=== PATIENT | male | born 1985 | race Caucasian/White ===

== ENCOUNTER 2024-03-18 13:33 | Inpatient (IN) | payer OTHER ==
[2024-03-18 14:28] VITALS: BMI 22.2
[2024-03-18] MEDS ORDERED: MAG HYDROX/AL HYDROX/SIMETH 30 ML UNIT-DOSE CUP PO PRN (15:13)
[2024-03-18] MEDS ORDERED: BENZOCAINE/MENTHOL (CHLORASEPTIC ) LOZENGE MM PRN (15:13)
[2024-03-18] MEDS ORDERED: POLYETHYLENE GLYCOL (HEALTHYLAX) 3350 17 GM PACKET PO PRN (15:13)
[2024-03-18] MEDS ORDERED: DOCUSATE SODIUM 100 MG CAPSULE (FP) PO PRN (15:13)
[2024-03-18] MEDS ORDERED: NALOXONE HCL (KLOXXADO) 8 MG SPRAY NS PRN (15:13)
[2024-03-18] MEDS ORDERED: ACETAMINOPHEN 325 MG TABLET (FP) PO PRN (15:13)
[2024-03-18] MEDS ORDERED: hydrOXYzine PAMOATE 25 MG CAPSULE (FP) PO PRN (15:13)
[2024-03-18] MEDS ORDERED: IBUPROFEN 400 MG TABLET (FP) PO PRN (15:13)
[2024-03-18] MEDS ORDERED: BENZONATATE 200 MG CAPSULE PO PRN (15:13)
[2024-03-18] MEDS ORDERED: P-EPHED 60MG/TRIPROLIDI 2.5MG TABLET PO PRN (15:13)
[2024-03-18] MEDS ORDERED: NALOXONE HCL 0.4 MG/ML VIAL IM PRN (15:13)
[2024-03-18] MEDS ORDERED: MAGNESIUM HYDROX 2400MG/30ML ORAL SUSPENSION 30 ML CUP PO PRN (15:13)
[2024-03-18] MEDS ORDERED: guaiFENesin 600 MG TABLET.ER (FP) PO PRN (15:13)
[2024-03-18] MEDS ORDERED: LOPERAMIDE HCL 2 MG CAPSULE PO PRN (15:13)
[2024-03-18] MEDS: THIAMINE 100 MG TABLET PO SCH (21:44)
[2024-03-18] MEDS: MELATONIN 5 MG TABLETS PO SCH (21:44)
[2024-03-19] MEDS: PANTOPRAZOLE 20 MG TABLET PO SCH (07:39)
[2024-03-19] MEDS ORDERED: methaDONE HCL 10 MG TABLET PO SCH (09:00)
[2024-03-19] MEDS: methaDONE 80 MG, methaDONE 20 MG PO ONE (09:25)
[2024-03-19] MEDS: NICOTINE 14 MG/24 HOURS TOPICAL PATCH TD SCH (09:26)
[2024-03-19] MEDS: PRENATAL VITAMINS W/ FOLIC ACID TABLET (FP) PO SCH (09:26)
[2024-03-19] MEDS: GABAPENTIN 300 MG CAPSULE PO SCH (10:16)
[2024-03-19 11:37] LABS: HEMATOCRIT 44.1 % (35.4-49); HEMOGLOBIN 14.1 GM/dL (11.7-16.9); MCH 25.5 pg (25.7-33.7); MCHC 31.9 g/dl (32.0-35.9); MEAN PLT VOLUME 7.4 fl (7.5-11.1); PLATELET COUNT 267 10^3/uL (134-434); POTASSIUM 3.9 mmol/L (3.5-5.1); RBC 5.52 M/mm3 (4.00-5.60); WHITE BLOOD COUNT 7.3 K/mm3 (4.0-10.0)
[2024-03-19 11:41] LABS: ALBUMIN 3.3 g/dl (3.4-5.0); BLOOD UREA NITROGEN 17.6 mg/dL (7-18)
[2024-03-19 11:43] LABS: CREATININE 0.8 mg/dL (0.55-1.3)
[2024-03-19 11:45] LABS: BILIRUBIN,TOTAL 1.5 mg/dL (0.2-1); TOT PROT 7.4 g/dl (6.4-8.2)
[2024-03-19] MEDS: QUEtiapine FUMARATE 100 MG TABLET (FP) PO SCH (21:46)
[2024-03-19] MEDS: traZODone HCL 50 MG TABLET (FP) PO SCH (21:46)
[2024-03-19] MEDS ORDERED: QUEtiapine FUMARATE 100 MG TABLET (FP) PO SCH (22:00)
[2024-03-20] MEDS ORDERED: methaDONE HCL 10 MG TABLET PO SCH (06:00)
[2024-03-20] MEDS: PANTOPRAZOLE 20 MG TABLET PO SCH (06:27)
[2024-03-20] MEDS: methaDONE 80 MG, methaDONE 20 MG PO SCH ×2 (06:53→10:52)
[2024-03-20] MEDS: FLUoxetine HCL 20 MG CAPSULE PO SCH (10:52)
[2024-03-21 17:13] LABS: URINE APPEARANCE CLEAR; URINE BILIRUBIN NEGATIVE (NEGATIVE); URINE COLOR YELLOW; URINE GLUCOSE (UA) NEGATIVE (NEGATIVE); URINE KETONE NEGATIVE (NEGATIVE); URINE LEUK ESTERASE NEGATIVE (NEGATIVE); URINE NITRITE NEGATIVE (NEGATIVE); URINE PROTEIN NEGATIVE (NEGATIVE)
[2024-03-21] MEDS: IBUPROFEN 600 MG TABLET (FP) PO PRN (20:16)
[2024-03-22] MEDS: PANTOPRAZOLE 20 MG TABLET PO SCH (10:18)
[2024-03-22] MEDS: TRIAMCINOLONE ACET 0.025% CREAM 15 GM TUBE TP PRN (21:24)
[2024-03-26 07:51] VITALS: RESP 18
[2024-03-27 07:11] VITALS: BP 111/72; PULSE 75; TEMP 97.8
== END 2024-03-27 09:12 | disposition home or self-care (01) | DRG 772 ==
LOC: YASAS 13:33 → Y3NR 17:01 → Y3E 03-20 12:12
PROVIDERS: ADMIT Allergy & Immunology; ATTEND Psychiatry & Neurology Pain Medicine
PROC: HZ42ZZZ Group Counseling for Substance Abuse Treatment, Cognitive-Behavioral (ICD-10-PCS; principal; 2024-03-18)
DX: F11.20 Opioid dependence, uncomplicated (principal); F14.20 Cocaine dependence, uncomplicated; F12.20 Cannabis dependence, uncomplicated; F17.210 Nicotine dependence, cigarettes, uncomplicated; F32.9 Major depressive disorder, single episode, unspecified; F41.9 Anxiety disorder, unspecified; K21.9 Gastro-esophageal reflux disease without esophagitis; L30.9 Dermatitis, unspecified; Z86.79 Personal history of other diseases of the circulatory system; Z86.19 Personal history of other infectious and parasitic diseases
CPT/HCPCS: 36415; 80053; 80305; 80307; 81003; 85027; 86780; 87811

== ENCOUNTER 2025-02-24 11:40 | Inpatient (IN) | payer OTHER ==
[2025-02-24 12:21] VITALS: BMI 29.8
[2025-02-24] MEDS ORDERED: NALOXONE (NARCAN) HCL 4 MG/0.1 ML SPRAY NS PRN (12:50)
[2025-02-24] MEDS ORDERED: POLYETHYLENE GLYCOL (HEALTHYLAX) 3350 17 GM PACKET PO PRN (12:50)
[2025-02-24] MEDS ORDERED: hydrOXYzine PAMOATE 25 MG CAPSULE (FP) PO PRN (12:50)
[2025-02-24] MEDS ORDERED: IBUPROFEN 400 MG TABLET (FP) PO PRN (12:50)
[2025-02-24] MEDS ORDERED: guaiFENesin 600 MG TABLET.ER (FP) PO PRN (12:50)
[2025-02-24] MEDS ORDERED: BENZONATATE 200 MG CAPSULE PO PRN (12:50)
[2025-02-24] MEDS ORDERED: IBUPROFEN 600 MG TABLET (FP) PO PRN (12:50)
[2025-02-24] MEDS ORDERED: LOPERAMIDE HCL 2 MG CAPSULE PO PRN (12:50)
[2025-02-24] MEDS ORDERED: MAGNESIUM HYDROX 2400MG/30ML ORAL SUSPENSION 30 ML CUP PO PRN (12:50)
[2025-02-24] MEDS ORDERED: ACETAMINOPHEN 325 MG TABLET (FP) PO PRN (12:50)
[2025-02-24] MEDS ORDERED: BENZOCAINE/MENTHOL (CHLORASEPTIC ) LOZENGE MM PRN (12:50)
[2025-02-24] MEDS ORDERED: PRENATAL VITAMINS W/ FOLIC ACID TABLET (FP) PO ONE ×2 (13:19→13:26)
[2025-02-24] MEDS: PRENATAL VITAMINS W/ FOLIC ACID TABLET (FP) PO SCH (13:26)
[2025-02-24] MEDS ORDERED: methaDONE HCL 10 MG TABLET PO ONE (15:36)
[2025-02-24] MEDS: methaDONE 40 MG, methaDONE 10 MG PO ONE (16:33)
[2025-02-24] MEDS: TOPIRAMATE 25 MG TABLET PO SCH (17:37)
[2025-02-24] MEDS: GABAPENTIN 300 MG CAPSULE PO SCH (21:19)
[2025-02-24] MEDS: traZODone HCL 100 MG TABLET (FP) PO SCH (21:19)
[2025-02-24] MEDS: QUEtiapine FUMARATE 100 MG TABLET (FP) PO SCH (21:19)
[2025-02-24] MEDS: THIAMINE 100 MG TABLET PO SCH (21:19)
[2025-02-24] MEDS: MELATONIN 5 MG TABLETS PO SCH (21:20)
[2025-02-25] MEDS: NICOTINE 21 MG/24 HOURS TOPICAL PATCH TD SCH (11:00)
[2025-02-25] MEDS: PANTOPRAZOLE 20 MG TABLET PO SCH (11:00)
[2025-02-25 11:09] LABS: POTASSIUM 4.2 mmol/L (3.5-5.1)
[2025-02-25 11:09] LABS: HEMATOCRIT 43.7 % (40.1-51.0); HEMOGLOBIN 14.1 g/dL (13.7-17.5); MCHC 32.3 g/dl (32.3-36.5); MEAN CELL VOLUME 89.4 fl (79.0-92.2); MEAN PLT VOLUME 9.3 fl (9.4-12.4); PLATELET COUNT 275 x10^3/uL (163-337); RDW 13.7 % (12.0-15.6)
[2025-02-25] MEDS ORDERED: methaDONE HCL 10 MG TABLET PO SCH (11:15)
[2025-02-25 11:21] LABS: ALBUMIN 3.9 g/dl (3.4-5.0); BLOOD UREA NITROGEN 26.8 mg/dL (7-18); CALCIUM 9.3 mg/dL (8.5-10.1)
[2025-02-25 11:24] LABS: CREATININE 1.1 mg/dL (0.55-1.3)
[2025-02-25 11:26] LABS: BILIRUBIN,TOTAL 1.2 mg/dL (0.2-1); TOT PROT 7.4 g/dl (6.4-8.2)
[2025-02-25 12:21] LABS: SYPHILIS W/ RPR CONF NON-REACTIVE (NONREACTIVE)
[2025-02-25 13:07] LABS: HCV DIAGNOSTIC IN-HOUSE W/RFLX REACTIVE (NONREACTIVE)
[2025-02-26 06:07] VITALS: RESP 16
[2025-02-26 12:36] LABS: URINE APPEARANCE CLEAR; URINE BILIRUBIN NEGATIVE (NEGATIVE); URINE COLOR YELLOW; URINE GLUCOSE (UA) NEGATIVE (NEGATIVE); URINE KETONE NEGATIVE (NEGATIVE); URINE LEUK ESTERASE NEGATIVE (NEGATIVE); URINE NITRITE NEGATIVE (NEGATIVE); URINE PROTEIN NEGATIVE (NEGATIVE)
[2025-02-26] MEDS: GABAPENTIN 300 MG CAPSULE PO SCH (14:06)
[2025-02-27] MEDS: TRIAMCINOLONE ACET 0.025% CREAM 15 GM TUBE TP PRN (13:04)
[2025-03-03] MEDS: MAG HYDROX/AL HYDROX/SIMETH 30 ML UNIT-DOSE CUP PO PRN (11:02)
[2025-03-04] MEDS: TRIAMCINOLONE ACET 0.1% CREAM 15 GM TUBE TP SCH (10:13)
[2025-03-06 06:04] VITALS: BP 122/76; PULSE 60; TEMP 97.1
== END 2025-03-07 09:45 | disposition home or self-care (01) | DRG 772 ==
LOC: YASAS 11:40 → Y3NR 14:01 → Y3W 02-25 09:21
PROVIDERS: ADMIT Psychiatry & Neurology Pain Medicine; ATTEND Psychiatry & Neurology Pain Medicine
PROC: HZ42ZZZ Group Counseling for Substance Abuse Treatment, Cognitive-Behavioral (ICD-10-PCS; principal; 2025-02-24)
DX: F11.20 Opioid dependence, uncomplicated (principal); F14.20 Cocaine dependence, uncomplicated; F17.210 Nicotine dependence, cigarettes, uncomplicated; G47.00 Insomnia, unspecified; F32.9 Major depressive disorder, single episode, unspecified; F39 Unspecified mood [affective] disorder; G62.9 Polyneuropathy, unspecified; K21.9 Gastro-esophageal reflux disease without esophagitis; M54.50 Low back pain, unspecified; G89.29 Other chronic pain; Z86.19 Personal history of other infectious and parasitic diseases
CPT/HCPCS: 36415; 80053; 80305; 80307; 81003; 85027; 86780; 86803; 87522; 87811; 93005; 93010